=== PATIENT | male | born 1945 | race Caucasian/White ===

== ENCOUNTER 2024-06-07 09:34 | Emergency (ER) | payer MEDICARE, OTHER, SELFPAY ==
[2024-06-07] VITALS (10 sets, daily range): BP systolic 101–153; BP diastolic 56–74; PULSE 50–72; RESP 12–17; TEMP 36.5; O2SAT 94–99; BMI 29.2
--- NOTE | 2024-06-07 09:39 | DI.RAD.S_ITS ---
PROCEDURE: XR CHEST 1V INDICATIONS: chest pain TECHNIQUE: One view of the chest was acquired. COMPARISON: None. FINDINGS: Surgical changes and devices: None. Lungs and pleura: Lungs are clear. No pleural effusions or pneumothorax. Mediastinum: Mediastinal contours appear normal. Heart size is normal. Bones and chest wall: No suspicious bony lesions. Overlying soft tissues appear unremarkable. IMPRESSION: No acute cardiopulmonary abnormality is seen. Dictated by: Jaxson Small M.D. on 06/07/2024 at 10:06 Approved by: Jaxson Small M.D. on 06/07/2024 at 10:07
--- NOTE | 2024-06-07 09:43 | EKG_ITS ---
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
[2024-06-07 09:57] LABS: Add Manual Diff / Slide Review NO; Basophils Absolute Auto 0 /uL (0-100); Basophils Percent Auto 0.7 % (0-2); Eosinophils Absolute Auto 100 /uL (0-450); Hematocrit 38.8 % (41-53); Hemoglobin 13.3 g/dL (13.5-17.5); Lymphocytes Absolute Auto 1600 /uL (1100-4500); Lymphocytes Percent Auto 25.7 % (25-40); Mean Corpuscular HGB Conc 34.4 % (30-36); Mean Corpuscular Hemoglobin 34.1 PG (26-34); Mean Corpuscular Volume 99.1 fL (80-100); Monocytes Absolute Auto 800 /uL (0-900); Monocytes Percent Auto 12.9 % (3-14); Neutrophils Absolute Auto 3800 /uL (1500-7000); Neutrophils Percent Auto 59.7 % (50-75); Platelet Count 159 X10^3/uL (150-400); Red Blood Cell Count 3.91 X10^6/uL (4.5-5.9); Red Cell Distribution Width 13.2 % (11.6-14.8); White Blood Cell Count 6.3 X10^3/uL (4.5-11.0)
[2024-06-07 10:01] LABS: INR 1.1 (0.9-1.3); Prothrombin Time 11.9 SECONDS (9.4-12.5)
[2024-06-07 10:04] LABS: PTT Partial Thromboplastin Tim 17 SECONDS (25.1-36.5)
[2024-06-07 10:48] LABS: Alanine Aminotransferase 34 IU/L (<50); Albumin Globulin Ratio 1.7 (1.0-2.8); Alkaline Phosphatase 53 U/L (38-126); Aspartate Aminotransferase 40 IU/L (17-59); BUN Creatinine Ratio 17.1 (6-22); Bilirubin Total 0.8 mg/dL (0.2-1.3); Blood Urea Nitrogen 18 mg/dL (9-20); Calcium 9.2 mg/dL (8.4-10.2); Carbon Dioxide 24 mmol/L (22-32); Chloride 103 mmol/L (98-107); Creatine Kinase 169 U/L (55-170); Estimated Glomerular Filt Rate > 60 mL/min (>60); Globulin 2.3 g/dL (1.7-4.1); Glucose 104 mg/dL (70-99); HEMOLYSIS < 15 (0-50); Lipase 112 U/L (23-300); Potassium 4.9 mmol/L (3.4-5.1); Sodium 133 mmol/L (137-145); Total Protein 6.3 g/dL (6.3-8.2)
[2024-06-07 11:00] LABS: NT-proBNP (BNP-Adult 18+) 102 pg/mL (<450); Troponin I < 0.012 ng/mL (0.01-0.034)
--- NOTE | 2024-06-07 11:02 | ED.DIZZY ---
HPI - Dizziness General Chief Complaint: Dizziness Stated Complaint: Low blood pressure , dizzy sent from Cardio Time Seen by Provider: 06/07/24 09:57 Source: patient Mode of arrival: Family Vehicle History of Present Illness HPI Narrative: Patient is sent here from cardiac rehab for feeling dizzy and low blood pressure. Patient just had stents and angioplasty done at [facility] with Dr. Younger about 6 weeks ago. Patient was push himself pretty hard. He states he is on more blood pressure medication since his stents and angioplasty. His morning blood pressure he states when he wakes up since the stents is usually around 80/90. He takes his blood pressure medication and later in the day about 3 hours later it usually is around 120 or 130 or 140 systolic. He was doing a balance maneuver with the therapist this morning. He got dizzy and they sat him down. Blood pressure systolic was 80 or 90 he states. He feels much better now. He never had syncope. No chest pain palpitations back pain. Related Data Allergies Allergy/AdvReac Type Severity Reaction Status Date / Time No Known Drug Allergies Allergy Verified 06/07/24 09:41 Review of Systems Review of Systems Narrative: GENERAL: Negative chills, fatigue, malaise, fever, sweats. HEENT: Negative sinus pain, ear pain, sore throat RESPIRATORY: Negative dyspnea, cough CARDIOVASCULAR: Negative chest pain, palpitations GASTROINTESTINAL: Negative vomiting, nausea, abdominal pain : Negative dysuria, frequency, hematuria MUSCULOSKELETAL: Negative muscle or bony pain SKIN: Negative rash, skin lesions NEUROLOGIC: Negative weakness, numbness, positive dizziness ROS Unobtainable: All systems reviewed & are unremarkable except as noted in HPI and below Patient History Social History Smoking Status: Never smoker Smoking Status: Never smoker Exam Narrative Exam Narrative: GENERAL: in no distress, not toxic not dyspneic HEAD: Normocephalic. EYES: Pupils equal round ENT: Mucous membranes moist. NECK: Trachea midline. CARDIOVASCULAR: Regular rate and rhythm RESPIRATORY: Clear to auscultation. Breath sounds equal bilaterally. No wheezes, rales, or rhonchi. GASTROINTESTINAL: Abdomen soft, non-tender EXTREMITIES: No gross deformities. BACK: No flank tenderness. NEURO: AOx4. Clear speech SKIN: Warm and dry PSYCH: Not anxious, is cooperative Initial Vital Signs Initial Vital Signs: Vital Signs Temperature 97.7 F 06/07/24 09:47 Pulse Rate 72 06/07/24 09:47 Respiratory Rate 17 06/07/24 09:47 Blood Pressure 139/63 06/07/24 09:47 Pulse Oximetry 99 06/07/24 09:47 Oxygen Delivery Method Room Air 06/07/24 09:47 Course Orders Ordered: Discontinued Medications Aspirin (Aspirin 81 Mg Chew Tab) 324 mg PO NOW ONE Stop: 06/07/24 09:40 Last Admin: 06/07/24 10:32 Dose: Not Given Documented By: TAMRA Sodium Chloride (Normal Saline 0.9%) 500 mls @ 1,000 mls/hr IV BOLUS ONE Stop: 06/07/24 11:34 Last Infusion: 06/07/24 12:08 Dose: Infused Documented By: Admin: 06/07/24 11:27 Dose: 1,000 mls/hr Documented By: DILMA Vital Signs Vital signs: Vital Signs - 8 hr 06/07/24 09:47 06/07/24 09:52 06/07/24 10:00 Temperature 97.7 F Pulse Rate 72 66 Respiratory Rate 17 14 Blood Pressure 139/63 101/56 L Pulse Oximetry 99 96 Oxygen Delivery Method Room Air 06/07/24 10:00 06/07/24 10:30 06/07/24 10:30 Temperature Pulse Rate 61 55 L Respiratory Rate 16 12 Blood Pressure 109/57 L Pulse Oximetry 95 94 Oxygen Delivery Method Room Air 06/07/24 11:00 06/07/24 11:00 06/07/24 11:30 Temperature Pulse Rate 57 L Respiratory Rate 17 Blood Pressure 132/64 140/64 Pulse Oximetry 94 Oxygen Delivery Method 06/07/24 11:30 06/07/24 12:00 06/07/24 12:00 Temperature Pulse Rate 51 L 53 L Respiratory Rate 12 12 Blood Pressure 145/67 H Pulse Oximetry 94 94 Oxygen Delivery Method MDM - Dizziness Lab Data 06/07/24 09:46 06/07/24 10:20 Labs: Lab Results 06/07/24 06/07/24 Range/Units 09:46 10:20 WBC 6.3 (4.5-11.0) X10^3/uL RBC 3.91 L (4.5-5.9) X10^6/uL Hgb 13.3 L (13.5-17.5) g/dL Hct 38.8 L (41-53) % MCV 99.1 (80-100) fL MCH 34.1 H (26-34) PG MCHC 34.4 (30-36) % RDW 13.2 (11.6-14.8) % Plt Count 159 (150-400) X10^3/uL Neut % (Auto) 59.7 (50-75) % Lymph % (Auto) 25.7 (25-40) % Coke % (Auto) 12.9 (3-14) % Eos % (Auto) 1.0 L (2-4) % Baso % (Auto) 0.7 (0-2) % Neut # (Auto) 3800 (4000-3748) /uL Lymph # (Auto) 1600 (6441-8915) /uL Coke # (Auto) 800 (0-900) /uL Eos # (Auto) 100 (0-450) /uL Baso # (Auto) 0 (0-100) /uL PT 11.9 (9.4-12.5) SECONDS INR 1.1 (0.9-1.3) APTT 17 L (25.1-36.5) SECONDS Sodium 133 L (137-145) mmol/L Potassium 4.9 (3.4-5.1) mmol/L Chloride 103 (98-107) mmol/L Carbon Dioxide 24 (22-32) mmol/L BUN 18 (9-20) mg/dL Creatinine 1.05 (0.66-1.25) mg/dL Estimated GFR > 60 (>60) mL/min BUN/Creatinine Ratio 17.1 (6-22) Glucose 104 H (70-99) mg/dL Calcium 9.2 (8.4-10.2) mg/dL Magnesium 2.0 (1.6-2.3) mg/dL Total Bilirubin 0.8 (0.2-1.3) mg/dL AST 40 (17-59) IU/L ALT 34 (<50) IU/L Alkaline Phosphatase 53 (38-126) U/L Total Creatine Kinase 169 (55-170) U/L Troponin I < 0.012 (0.01-0.034) ng/mL NT-Pro-B Natriuret Pep 102 (<450) pg/mL Total Protein 6.3 (6.3-8.2) g/dL Albumin 4.0 (3.5-5.0) g/dL Globulin 2.3 (1.7-4.1) g/dL Albumin/Globulin Ratio 1.7 (1.0-2.8) Lipase 112 (23-300) U/L Imaging Data Chest x-ray: Radiologist's Impression: [address] [address] XRay Report Signed Patient: Bernardo Reyes MR#: [id number] : 1945 Acct:[id number] Age/Sex: 79 / M Date of Service: 06/07/24 Loc: ED Accession Number: [id number] Procedure: XR chest 1V Ordering Provider: Dante Leonardo MD PROCEDURE: XR CHEST 1V INDICATIONS: chest pain TECHNIQUE: One view of the chest was acquired. COMPARISON: None. FINDINGS: Surgical changes and devices: None. Lungs and pleura: Lungs are clear. No pleural effusions or pneumothorax. Mediastinum: Mediastinal contours appear normal. Heart size is normal. Bones and chest wall: No suspicious bony lesions. Overlying soft tissues appear unremarkable. IMPRESSION: No acute cardiopulmonary abnormality is seen. Dictated by: Jaxson Small M.D. on 06/07/2024 at 10:06 Approved by: Jaxson Small M.D. on 06/07/2024 at 10:07 [facility] Narrative Medical decision making narrative: Patient is sent here from cardiac rehab for feeling dizzy and low blood pressure. Patient just had stents and angioplasty done at [facility] with Dr. Younger about 6 weeks ago. Patient was push himself pretty hard. He states he is on more blood pressure medication since his stents and angioplasty. His morning blood pressure he states when he wakes up since the stents is usually around 80/90. He takes his blood pressure medication and later in the day about 3 hours later it usually is around 120 or 130 or 140 systolic. He was doing a balance maneuver with the therapist this morning. He got dizzy and they sat him down. Blood pressure systolic was 80 or 90 he states. He feels much better now. He never had syncope. No chest pain palpitations back pain. After history and exam, CBC CMP normal saline EKG troponin chest x-ray [facility] Medical records reviewed: Differential considered: Includes but not limited to Lab Test results independently reviewed as above. Pertinent findings: WBC 6.3 hemoglobin 13.3 INR 1.1 sodium 133 potassium 4.9 glucose 104 creatinine 1.05 bicarb 24 GFR greater than 60 troponin less than 0.012 BNP 102 Independently reviewed EKG sinus rhythm rate 67 first-degree AV block. No ST elevation Imaging studies independently reviewed: Chest x-ray no acute finding Consultations: 12:56 p.m.. Spoke with the [facility] cardiology manager Dr. Mely Newsome, she recommends calling patient's local hand dry cleaner for medication adjustments as his blood pressure may be too low in the mornings. 1:15 p.m.. Spoke with Cardiology on-call, spoke with Dr. Fletcher, patient can be discharged home. He can discontinue the amlodipine. Keep the lisinopril and metoprolol. Who will see patient in the office for follow up. Re-evaluations: 11:15 a.m.. Patient doing well. Blood pressure has improved. Before IV fluids. 139/63. At 10:00 a.m. it was 101/56. Pulse 61 at that time. Pulse now is 72. Discussion: Appropriate for discharge home. Patient's blood pressure likely too low in the morning and causing him to be orthostatic during activity during rehab. Cardiology was consulted. Medication changes have been adjusted. Patient desires discharge home. Return precautions reviewed. He desires discharge home. Diagnosis: Orthostatic hypotension Discharge Plan Departure Patient Disposition: Home Clinical Impression: Orthostatic hypotension Instructions: Orthostatic Hypotension Activity Restrictions/Additional Instructions: Your blood pressure is likely too low to take some of your blood pressure medication and this is likely what caused her dizziness in rehab today. Please discontinue the amlodipine. You may resume your other medications. Please see your hand dry cleaner as scheduled. Return if worse if any questions or concerns Stand Alone Forms: Patient Portal/API/Survey
[2024-06-07] MEDS: SODIUM CHLORIDE 0.9% 500 ML 1000 ML IV (11:27)
--- NOTE | 2024-06-07 12:08 | PC.NURSE ---
pt up to use the RR and was able to ambulate well without help. He stated that he was not dizzy and not lightheaded while standing and ambulating.
== END 2024-06-07 13:22 | disposition home or self-care (01) ==
PROVIDERS: Emergency Provider Emergency Medicine
DX: I95.1 Orthostatic hypotension (principal); R07.9 Chest pain, unspecified
CPT/HCPCS: 36415; 71045; 80053; 82550; 83690; 83735; 83880; 84484; 85025; 85610; 85730; 93005; 93010; 96360; 99284

== ENCOUNTER 2024-07-12 08:30 | Outpatient (RCR) | payer MEDICARE, OTHER, SELFPAY | END 2024-07-12 10:30 | LOC: CAR 08:30 | PROVIDERS: Referring Provider Internal Medicine; Visit Provider Internal Medicine | DX: I21.4 Non-ST elevation (NSTEMI) myocardial infarction (principal) | CPT/HCPCS: 93798 ==

== ENCOUNTER → 2024-08-20 07:33 | Outpatient (CLI) | payer MEDICARE, OTHER, SELFPAY ==
--- NOTE | 2024-08-20 07:36 | DI.NM.S_ITS ---
PROCEDURE: NM AMINAH PERF SPECT REST & STR Rest and exercise myocardial perfusion SPECT with gated imaging and ejection fraction RADIOPHARMACEUTICAL: 26.3 mCi Tc-99m sestamibi IV at rest and 26.7 mCi Tc-99m sestamibi IV at peak exercise. A 2 day-protocol was performed. INDICATIONS: CHEST DISCOMFORT TECHNIQUE: Radiopharmaceutical was injected at peak stress test, and also at rest. SPECT images were obtained. SPECT myocardial perfusion images were displayed in short axis, horizontal long axis, and vertical long axis views. Gated images were reviewed using [employer] software. COMPARISON: None. CARDIAC STRESS: A standard Joao treadmill exercise tolerance test was performed by the patient under the supervision of an attending staff. The patient exercised for 10 minutes and 14 seconds; 12.8 METS; functional aerobic impairment (MARIEL) is -73%. Hemodynamic data: There is normal blood pressure and heart rate response to exercise stress. Patient achieved 100% of maximum predicted heart rate at peak exercise. Peak blood pressure 154/62. Symptoms: Patient reported 2 out of 10 left upper chest discomfort during exercise. EKG: Rest ECG sinus rhythm. Exercise ECG sinus tachycardia, 1 to 1.5 mm horizontal to downsloping ST segment depressions V5, V6 and lead II, III and aVF, occasional PVCs. Right at the end of exercise, the patient developed a left bundle branch block that resolved with 30 seconds into recovery. FINDINGS: Raw data: There is good myocardial labeling by radiotracer. No significant motion artifacts. Left ventricle function: Gated images demonstrate normal left ventricle wall thickening. No segmental wall motion abnormality. No transient ischemic dilation; TID is 0.78 (normal less than 1.3). The left ventricle resting end-diastolic volume is 111 mL. Left ventricle stress ejection fraction is >75%; normal values are above 45%. Myocardial perfusion: There is normal distribution of activity in the left and right ventricular myocardium. No fixed or reversible perfusion defects. IMPRESSION: Low risk perfusion study. No evidence of exercise-induced ischemia on SPECT imaging. Abnormal exercise ECG with horizontal to downsloping ST segment depressions and rate related LBBB. Normal LV size with hyperdynamic function. Normal hemodynamic response. Excellent exercise capacity. Dictated by: Mehreen Ramirez D.O. on 08/22/2024 at 16:21 Approved by: Mehreen Ramirez D.O. on 08/22/2024 at 16:33
== END ==
PROVIDERS: Referring Provider Internal Medicine Cardiovascular Disease; Visit Provider Internal Medicine Cardiovascular Disease
DX: R07.89 Other chest pain (principal); Z95.5 Presence of coronary angioplasty implant and graft
CPT/HCPCS: 78452; 93017; A9502

== ENCOUNTER → 2024-09-14 10:47 | Outpatient (CLI) | payer MEDICARE, OTHER, SELFPAY ==
[2024-09-14 11:41] LABS: Add Manual Diff / Slide Review NO; Hematocrit 37.9 % (41-53); Hemoglobin 13.0 g/dL (13.5-17.5); Lymphocytes Absolute Auto 900 /uL (1100-4500); Mean Corpuscular HGB Conc 34.2 % (30-36); Mean Corpuscular Hemoglobin 34.3 PG (26-34); Mean Corpuscular Volume 100.3 fL (80-100); Platelet Count 160 X10^3/uL (150-400)
== END ==
PROVIDERS: Referring Provider Internal Medicine Cardiovascular Disease; Visit Provider Internal Medicine Cardiovascular Disease
DX: I10 Essential (primary) hypertension (principal); I25.10 Atherosclerotic heart disease of native coronary artery without angina pectoris
CPT/HCPCS: 36415; 85025